=== PATIENT | male | born 1955 | race Caucasian/White ===

== ENCOUNTER → 2018-08-09 | Outpatient (CLI) | payer OTHER ==
[~2018-08-09] MED LIST: INDOCIN SR75 MG PO; Lopressor25 MG PO; ULTRAM50 MG PO
== END | disposition home or self-care (01) ==
LOC: RAD 13:30
DX: Z13.820 Encounter for screening for osteoporosis (principal); M19.90 Unspecified osteoarthritis, unspecified site; M41.86 Other forms of scoliosis, lumbar region; F17.200 Nicotine dependence, unspecified, uncomplicated

== ENCOUNTER → 2020-11-10 | Outpatient (CLI) | payer OTHER | END | disposition home or self-care (01) | LOC: COVID19 10:37 | PROVIDERS: ATTEND Family Medicine | DX: Z01.812 Encounter for preprocedural laboratory examination (principal); Z20.822 Contact with and (suspected) exposure to COVID-19 ==

== ENCOUNTER → 2020-11-10 | Outpatient (CLI) | payer OTHER | END | disposition home or self-care (01) | LOC: LAB 09:58 | PROVIDERS: ATTEND Family Medicine | DX: Z01.818 Encounter for other preprocedural examination (principal); I71.00 Dissection of unspecified site of aorta ==

== ENCOUNTER 2022-01-26 19:59 | Emergency (ER) | payer OTHER ==
[~2022-01-26] VITALS: Ht 396.2 cm; Wt 81.6 kg
[2022-01-26] MEDS ORDERED: OMNICEF300 MG PO (20:53)
[2022-01-26] MEDS ORDERED: Percocet 325 MG1 TAB PO (20:53)
== END 2022-01-26 21:16 | disposition home or self-care (01) ==
LOC: ED 19:59
DX: R04.0 Epistaxis (principal); Z88.0 Allergy status to penicillin; Z79.82 Long term (current) use of aspirin

== ENCOUNTER → 2022-02-08 | Outpatient (CLI) | payer OTHER ==
[~2022-02-08] MED LIST changes: +OMNICEF300 MG PO; +Percocet 325 MG1 TAB PO
== END | disposition home or self-care (01) ==
LOC: CT 11:00
PROVIDERS: ATTEND Specialist
DX: J32.0 Chronic maxillary sinusitis (principal)

== ENCOUNTER 2024-09-12 17:16 | Emergency (ER) | payer OTHER ==
[~2024-09-12] VITALS: Ht 172.7 cm; Wt 81.6 kg
[2024-09-12] MEDS ORDERED: Phenylephrine Hydrochloride 0.25% Nasal 40 ml bottle NAS ONE (17:25)
[2024-09-12] MEDS ORDERED: cloNIDine Hydrochloride 0.1 MG TAB PO ONE (17:55)
== END 2024-09-12 19:20 | disposition home or self-care (01) ==
LOC: ED 17:16
DX: R04.0 Epistaxis (principal); I10 Essential (primary) hypertension; I48.91 Unspecified atrial fibrillation; Z88.0 Allergy status to penicillin; Z79.899 Other long term (current) drug therapy; Z98.890 Other specified postprocedural states